=== PATIENT | female | born 1990 | race Asian ===

== ENCOUNTER 2024-11-08 05:48 | Emergency (ER) | payer OTHER ==
[~2024-11-08] VITALS: Ht 152.4 cm; Wt 59.0 kg
[2024-11-08 06:00] VITALS: BP 116/84; TEMP 97.4; O2SAT 100
[2024-11-08] MEDS ORDERED: ERYT3.5O9 EACHEYE (07:04)
[2024-11-08 21:12] LABS: HIV-1 p24 ANTIGEN NON REACTIVE (NONREACTIVE); HIV-1/2 ANTIBODY NON REACTIVE (NONREACTIVE)
[2024-11-11 01:07] LABS: HEPATITIS B SURFACE AB (QUAL) Reactive (.)
== END 2024-11-08 07:08 | disposition home or self-care (01) ==
LOC: ER 05:59
DX: Z77.21 Contact with and (suspected) exposure to potentially hazardous body fluids (principal); Z60.2 Problems related to living alone
CPT/HCPCS: 36415; 86706; 86803; 87806